=== PATIENT | female | born 1975 | race Caucasian/White ===

== ENCOUNTER 2023-07-28 13:18 | Emergency (ER) | payer OTHER ==
[2023-07-28 13:40] VITALS: BP 124/60; O2SAT 100
--- NOTE | 2023-07-28 16:01 | ED Physician Documentation ---
History of Present Illness - Stated complaint Stated Complaint: SHAKING/DIZZY/SOA - Chief complaint Chief Complaint: Allergic Rx - Additonal information Additional information: Patient not seen By provider. She had left after being triaged. The patient had been concerned about possible allergic reaction after eating a cookie that she thought may have nuts in it however then she determined a cookie did not have nuts in it but wanted to be evaluated. Her triage Vitals were stable and there were no concerning findings By RN and given the acuity of the ER at that time, we are not able to bring her back quickly and she subsequently left without being seen. PD PAST MEDICAL HISTORY - Past Medical History Past Medical History: No Cardiovascular: None Respiratory: None Neuro: None Endocrine/Autoimmune: None GI: None S[employer]: None : None HEENT: None Psych: None Musculoskeletal: None Derm: None - Past Surgical History Past Surgical History: No - Allergies Allergies/Adverse Reactions: Allergies Allergy/AdvReac Type Severity Reaction Status Date / Time amoxicillin Allergy Emesis Verified 07/28/23 13:34 - Social History Does the pt smoke?: No Smoking Status: Never smoker Does the pt drink ETOH?: No Does the pt have substance abuse?: No - Immunizations Immunizations are current?: Yes Results - Vitals Vitals: Vital Signs - 24 hr 07/28/23 13:34 Temperature 36.5 C Heart Rate 71 Respiratory 16 Rate Blood Pressure 124/60 O2 Saturation 100 Oxygen O2 Source Room air Departure - Departure Disposition: ED Left Without Being Seen Clinical Impression: Worried well Forms: PCP List Discharge Date/Time: 07/28/23 14:05
== END 2023-07-28 14:05 | disposition left against medical advice (07) ==
LOC: ED 13:18
DX: R42 Dizziness and giddiness (principal); Z53.21 Procedure and treatment not carried out due to patient leaving prior to being seen by health care provider